=== PATIENT | male | born 1980 | race Caucasian/White ===

== ENCOUNTER → 2017-07-30 | Outpatient (CLI) | payer OTHER ==
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
--- NOTE | 2017-07-31 10:03 | RADRPT ---
PROCEDURE: XR pelvis and left hip. CLINICAL INDICATION: Pain TECHNIQUE: 2 views of the pelvis and left hip were performed. COMPARISON: None. FINDINGS: There is no evidence of acute fractures of the visualized pelvis. Iliac wings are intact. SI joints are symmetric. The pubic rami as are within normal limits. Both hips appear to be with normal limits . No gross abnormal osseous lesions. Soft tissues are unremarkable. There are degenerative changes o f the lumbosacral spine. IMPRESSION: 1. No evidence of acute fractures of visualized pelvis and left hip. RPTAT: [facility] Physician Darrell Date Time Electronically viewed and signed by Physician Darrell on 07/31/2017 10:03 MITZI/
== END | disposition home or self-care (01) ==
LOC: HKI 15:13
PROVIDERS: ATTEND Orthopaedic Surgery Adult Reconstructive Orthopaedic Surgery
DX: M16.12 Unilateral primary osteoarthritis, left hip (principal)
CPT/HCPCS: 73502; Z7500; G0463

== ENCOUNTER 2018-02-13 12:01 | Inpatient (IN) | END 2018-02-18 15:45 | disposition home health service (06) | DRG 473 ==